=== PATIENT | female | born 1970 | race Two or more races ===

== ENCOUNTER → 2019-11-26 | Outpatient (CLI) | payer OTHER ==
[2019-11-26 09:35] LABS: Basophils # (auto) 0.1 uL; Eosinophils # (auto) 0.2 uL; Monocytes # (auto) 0.7 uL; Neutrophils # (auto) 3.7 uL; White Blood Cell 6.3 10^3/uL (4.4-10.8)
[2019-11-26 09:37] LABS: Basophils % (auto) 1.1 % (0.0-2.0); Eosinophils % (auto) 2.5 % (0.0-7.0); Hematocrit 31.2 % (36.0-46.0); Hemoglobin 9.9 g/dL (12.2-16.2); Lymphocytes # (auto) 1.7 uL; Lymphocytes % (auto) 27.4 % (10.0-50.0); Mean Corpuscular Hemoglobin 22.6 pg (28.0-32.0); Mean Corpuscular Hgb Conc. 31.7 g/dL (32.0-36.0); Mean Corpuscular Volume 71.3 fL (80.0-100.0); Monocytes % (auto) 10.7 % (0.0-12.0); Neutrophils % (auto) 58.3 % (37.0-80.0); Platelet Count (auto) 399 10^3/uL (140-450); Red Blood Cells 4.37 10^6/uL (4.0-5.20)
[2019-11-26 10:04] LABS: Follicle Stimulating Hormone 46.43 IU/L (SEE BELOW)
== END | disposition home or self-care (01) ==
LOC: LAB 08:53
PROVIDERS: ATTEND Obstetrics & Gynecology
DX: N93.9 Abnormal uterine and vaginal bleeding, unspecified (principal)
CPT/HCPCS: 36415; 82670; 83001; 83002; 84403; 84443; 85025

== ENCOUNTER 2022-09-12 19:45 | Inpatient (IN) | payer BC, OTHER ==
[~2022-09-12] VITALS: Ht 160 cm; Wt 66.0 kg
[2022-09-12] MEDS ORDERED: IOHEXOL 350 MG/ML 100ML IJ ONE (20:23)
[2022-09-12] MEDS ORDERED: ONDANSETRON HCL 4 MG/2 ML VIAL IV ONE (20:45)
[2022-09-12] MEDS ORDERED: MORPHINE SULFATE 4 MG/ML SYR/VIAL IV ONE (20:45)
[2022-09-12] MEDS ORDERED: LACTATED RINGER'S 1,000 ML IV ONE (20:45)
[2022-09-12 21:01] LABS: Basophils # (auto) 0 10 ^3/uL (0-0.2); Basophils % (auto) 0.4 % (0.0-2.0); Eosinophils # (auto) 0 10 ^3/uL (0-0.8); Hematocrit 41.6 % (36.0-46.0); Lymphocytes # (auto) 0.4 10 ^3/uL (0.4-5.4); Lymphocytes % (auto) 4.7 % (10.0-50.0); Mean Corpuscular Hemoglobin 27.9 pg (28.0-32.0); Mean Corpuscular Hgb Conc. 33.6 g/dL (32.0-36.0); Mean Corpuscular Volume 83.1 fL (80.0-100.0); Monocytes # (auto) 0.6 10 ^3/uL (0-1.3); Monocytes % (auto) 6.4 % (0.0-12.0); Neutrophils # (auto) 7.6 10 ^3/uL (1.6-8.6); Neutrophils % (auto) 88.5 % (37.0-80.0); Red Blood Cells 5.01 10^6/uL (4.0-5.20); White Blood Cell 8.5 10^3/uL (4.4-10.8)
[2022-09-12 21:06] LABS: INR 1.03 (0.9-1.15); Partial Thromboplastin Time 29.3 sec (24.6-33.4)
[2022-09-12 21:09] LABS: Albumin 4.2 g/dL (3.4-5.0); Calcium 9.2 mg/dL (8.5-10.1); Potassium 3.7 mmol/L (3.5-5.1)
[2022-09-12 21:13] LABS: BUN/Creatinine Ratio 14.3; Total Protein 7.9 g/dL (6.4-8.2)
[2022-09-12] MEDS ORDERED: HYDROcodone-ACET 10/325MG TAB PO ONE (23:00)
[2022-09-13 05:36] LABS: Urine Bacteria NONE SEEN /hpf (None Seen); Urine Blood Negative /uL (Negative); Urine Mucus FEW (None Seen); Urine WBC 1 /hpf (0 - 5)
[2022-09-13 05:37] LABS: Urine Specific Gravity > 1.050 (1.001-1.035)
[2022-09-13] MEDS ORDERED: ACETAMINOPHEN 500 MG TAB PO ONE (08:15)
[2022-09-13 11:35] VITALS: BP 131/78
[2022-09-13] MEDS ORDERED: HYDROcodone-ACET 5/325MG TAB PO PRN (12:15)
[2022-09-13] MEDS ORDERED: MORPHINE SULFATE INJ 2 MG/ml SYRG IV PRN (12:15)
[2022-09-13] MEDS ORDERED: ACETAMINOPHEN 325 MG TAB PO PRN (12:15)
[2022-09-13] MEDS ORDERED: ONDANSETRON HCL 4 MG/2 ML VIAL IV PRN (12:15)
[2022-09-13] MEDS ORDERED: NITROGLYCERIN 0.4 MG SL TAB SL PRN (12:15)
[2022-09-14] MEDS ORDERED: cefTRIAXone 1GM/50ML D5W 50 ML IV SCH (09:00)
== END 2022-09-13 12:57 | disposition left against medical advice (07) | DRG 552 ==
LOC: ER 19:52 → TELE 09-13 12:10
PROVIDERS: ADMIT Hospitalist; ATTEND Hospitalist
DX: M54.50 Low back pain, unspecified (principal); I77.4 Celiac artery compression syndrome; Z20.822 Contact with and (suspected) exposure to COVID-19; Z53.29 Procedure and treatment not carried out because of patient's decision for other reasons; E86.0 Dehydration; R73.9 Hyperglycemia, unspecified
CPT/HCPCS: 36415; 70450; 71260; 74177; 80053; 81001; 82962; 83735; 83880; 84484; 85025; 85610; 85730; 87426; 93005; 96361; 96374; 99291; G0378; J2405

== ENCOUNTER 2025-09-25 07:01 | Inpatient (IN) | payer BC ==
[2025-09-25] VITALS (14 sets, daily range): BP systolic 125–182; BP diastolic 79–120; PULSE 66–91; RESP 15–22; TEMP 97.7–98.4; O2SAT 95–100
[~2025-09-25] VITALS: Ht 160 cm; Wt 80.3 kg
--- NOTE | 2025-09-25 07:50 | ED.PDOC ---
HPI Comments 54 year old female presents to the ED with a chief complaint of chest pain onset last night around 19:00. Patient states she began experiencing LT sided, non- radiating chest pain, since last night around 19:00, currently rates pain 10/10. She describes pain as a pressure sensation, worsens with inhalation. She has been sick with flu-like symptoms since 09/12/25, including cough, congestion. Denies nausea, vomiting, diarrhea, dizziness, headache, fever, chills, blurred vision, numbness/tingling. No other symptoms or modifying factors present at this time. Chief Complaint: Chest Pain Time Seen by MD: 07:30 Reviewed Notes: Medications, Allergies Allergies: Coded Allergies: NO KNOWN ALLERGIES (Unverified , 09/25/25) Information Source: Patient, Spouse Mode of Arrival: Ambulatory Severity: Moderate Timing: Hours Duration: Since onset Prehospital treatment: None Location: Chest (L) Radiation: No Radiation Quality: Pressure Onset: At Rest Cardiac Risk Factors: None PE Risk Factors: None History of: None Modifying Factors: Nothing Past Medical History PAST MEDICAL HISTORY: Denies Surgical History: STONE HAND History: Denies all STONE HAND Hx Family History Family History: Reviewed,noncontributory to illness Social History Smoker: Non-Smoker Alcohol: Denies ETOH Use Drugs: Denies Drug Use Lives In: Home Constitutional: denies: chills, diaphoresis, fatigue, fever, malaise, sweats, weakness, others EENTM: denies: blurred vision, double vision, ear bleeding, ear discharge, ear drainage, ear pain, ear ringing, eye pain, eye redness, hearing loss, mouth pain, mouth swelling, nasal discharge, nose bleeding, nose congestion, nose pain, photophobia, tearing, throat pain, throat swelling, voice changes, others Respiratory: denies: cough, hemoptysis, orthopnea, SOB at rest, shortness of breath, SOB with excertion, stridor, wheezing, others Cardiovascular: reports: chest pain; denies: dizzy spells, diaphoresis, Dyspnea on exertion, edema, irregular heart beat, left arm pain, lightheadedness, palpitations, PND, syncope, others Gastrointestinal: denies: abdomen distended, abdominal pain, blood streaked bowels, constipated, diarrhea, dysphagia, difficulty swallowing, hematemesis, melena, nausea, poor appetite, poor fluid intake, rectal bleeding, rectal pain, vomiting, others Genitourinary: denies: abnormal vagina bleeding, burning, dyspareunia, dysuria, flank pain, frequency, hematuria, incontinence, pain, , vagina discharge, urgency, others Neurological: denies: dizziness, fainting, headache, left sided numbness, left sided weakness, numbness, paresthesia, pre-existing deficit, right sided numbness, right sided weakness, seizure, speech problems, tingling, tremors, weakness, others Musculoskeletal: denies: back pain, gout, joint pain, joint swelling, muscle pain, muscle stiffness, neck pain, others Integumetry: denies: bruises, change in color, change in hair/nails, dryness, laceration, lesions, lumps, rash, wounds, others Allergic/Immunocompromised: denies: Difficulty Healing, Frequent Infections, Hives, Itching, others Hematologic/Lymphatic: denies: anemia, blood clots, easy bleeding, easy bruising, swollen glands, others Endocrine: denies: excessive hunger, excessive sweating, excessive thirst, excessive urination, flushing, intolerance to cold, intolerance to heat, unexplained weight gain, unexplained weight loss, others Psychiatric: denies: anxiety, bipolar disorder, depression, hopeless, panic disorder, schizophrenia, sleepless, suicidal, others All Other Systems: Reviewed and Negative Physical Exam General Appearance: Normal, Other (appears uncomfortable) HEENT: Normal ENT Inspection, Pharynx Normal, TMs Normal Neck: Full Range of Motion, Non-Tender, Normal, Normal Inspection Respiratory: Chest Non-Tender, Lungs Clear, No Accessory Muscle Use, No Respiratory Distress, Normal Breath Sounds Cardiovascular: No Edema, No JVD, No Murmur, No Gallop, Normal Peripheral Pulses, Regular Rate/Rhythm Breast Exam: Deferred Gastrointestinal: No Organomegaly, Non Tender, No Pulsatile Mass, Normal Bowel Sounds, Soft Genitalia: Deferred Pelvic: Deferred Rectal: Deferred Extremities: No calf tenderness, Normal capillary refill, Normal inspection, Normal range of motion, Non-tender, No pedal edema Musculoskeletal : Apperance: Normal Neurologic: Alert, field marketing lead II-XII nml as Tested, No Motor Deficits, Normal Affect, Normal Mood, No Sensory Deficits Cerebellar Function: Normal Reflexes: Normal Skin: Dry, Normal Color, Warm Lymphatic: No Adenopathy Was a procedure done? Was a procedure done?: No CP Differential Dx Differential Diagnosis: MAT, [place] Differential Diagnosis: Chest Wall Pain, Pneumonia, Other X-Ray, Labs, Meds, VS Vital Signs Date Time Temp Pulse Resp B/P (MAP) Pulse Ox O2 Delivery O2 Flow Rate FiO2 09/25/25 08:16 60 09/25/25 07:38 97.8 82 16 175/113 96 97.8 09/25/25 07:29 68 Lab Test 09/25/25 08:32 09/25/25 07:48 Range/Units Troponin I High Sensitivity 5 7 </=34 ng/L White Blood Count 7.2 4.4-10.8 10^3/uL Red Blood Count 4.98 4.0-5.20 10^6/uL Hemoglobin 14.6 12.2-16.2 g/dL Hematocrit 43.4 36.0-46.0 % Mean Corpuscular Volume 87.1 80.0-100.0 fL Mean Corpuscular Hemoglobin 29.2 28.0-32.0 pg Mean Corpuscular Hemoglobin Concent 33.6 32.0-36.0 g/dL Red Cell Distribution Width 12.8 11.8-14.3 % Platelet Count 311 140-450 10^3/uL Mean Platelet Volume 7.7 6.9-10.8 fL Neutrophils (%) (Auto) 61.5 37.0-80.0 % Lymphocytes (%) (Auto) 27.9 10.0-50.0 % Monocytes (%) (Auto) 7.6 0.0-12.0 % Eosinophils (%) (Auto) 2.5 0.0-7.0 % Basophils (%) (Auto) 0.5 0.0-2.0 % Neutrophils # (Auto) 4.4 1.6-8.6 10 ^3/uL Lymphocytes # (Auto) 2.0 0.4-5.4 10 ^3/uL Monocytes # (Auto) 0.5 0-1.3 10 ^3/uL Eosinophils # (Auto) 0.2 0-0.8 10 ^3/uL Basophils # (Auto) 0 0-0.2 10 ^3/uL Nucleated Red Blood Cells 0.1 % Sodium Level 144 136-145 mmol/L Potassium Level 4.3 3.5-5.1 mmol/L Chloride Level 105 98-107 mmol/L Carbon Dioxide Level 29 20-31 mmol/L Anion Gap 10 5-15 Blood Urea Nitrogen 8 L 9-23 mg/dL Creatinine 0.73 0.550-1.02 mg/dL Glomerular Filtration Rate Calc 98 >90 mL/min BUN/Creatinine Ratio 11.0 10.0-20.0 Serum Glucose 99 74-106 mg/dL Calcium Level 10.1 8.7-10.4 mg/dL [place] [id number] Ph: [phone] DIAGNOSTIC IMAGING Diagnostic Imaging Report : [id number] Signed PATIENT: KALA MARTIN ACCT: [id number] UNIT: [id number] : 1970 LOC: ER ROOM / BED: / AGE / SEX: 54 / F ADM STATUS: REG ER SERVICE 5 ORDERING PHYSICIAN: KAMERON WALSH MD PROCEDURE(s): CXRP - CHEST PORTABLE REASON: cp ORDER NUMBER(s): [id number], ACCESSION NUMBER(s): [id number] CHEST RADIOGRAPH INDICATION: cp TECHNIQUE: Single frontal view of the chest was obtained COMPARISON: None FINDINGS: Lines and Tubes: None Lungs: Clear Pleura: No effusion. No pneumothorax. Cardiomediastinal contours: Unremarkable Bones: Unremarkable IMPRESSION: No acute disease. ATED BY: HIEU LOPEZ MD DICTATED DATE/TIME: 09/25/25822 SIGNED BY: HIEU LOPEZ MD SIGNED DATE/TIME: 09/25/25822 CC: Time of 1ST Reevaluation: 08:00 Reevaluation 1ST: Unchanged Patient Education/Counseling: Diagnosis, Treatment, Prognosis Family Education/Counseling: No Family Present SEPSIS Sepsis Screen Physician Orders Urinalysis (09/25/25 07:36) Chest Portable (09/25/25 07:36) Electrocardigram (09/25/25 07:36) Troponin-I Hs (09/25/25 10:36) Electrocardigram (09/25/25 08:36) Electrocardigram (09/25/25 10:36) Vital Signs Date Time Temp Pulse Resp B/P (MAP) Pulse Ox O2 Delivery O2 Flow Rate FiO2 09/25/25 08:16 60 09/25/25 07:38 97.8 82 16 175/113 96 97.8 09/25/25 07:29 68 Laboratory Tests Test 09/25/25 07:48 White Blood Count 7.2 10^3/uL (4.4-10.8) Departure 1 Departure Time of Disposition: 09:28 (Patient presented with chest pain that was concerning for possible STEMI, ACS, PE, Pneumonia, Muscle Strain, COPD, Dissection. Data: 1. I ordered and reviewed the result of at least 3 labs including a CBC, BMP, and Troponin. 2. I independently interpreted the following tests: EKG which shows sinus arrhythmia and Chest X-ray which shows benign chest.Risk:This patient has a high risk of morbidity due to further diagnostic testing or treatment and may suffer from an acute cardiac or respiratory disorder. Workup reveals concern for ACS and patient should be admitted for further workup and possible expert consultation. ) Impression: Primary Impression: Acute chest pain Additional Impression: Nausea Disposition: 09 ADMITTED INPATIENT Admit to: Tele Condition: Guarded Critical Care Note Critical Care Time?: No Stability Stability form required: No Heart Score Heart Score: Heart Score Response (Comments) Value History N/A 0 EKG N/A 0 Age N/A 0 Risk Factors N/A 0 Troponin N/A 0 Total 0 I personally scribed for KAMERON WALSH MD ([email or web address]) on 09/25/25 at 07:49. Electronically submitted by Anca Perkins ([email or web address]). I personally scribed for KAMERON WALSH MD ([email or web address]) on 09/25/25 at 08:11. Electronically submitted by Anca Perkins ([email or web address]). I personally scribed for KAMERON WALSH MD ([email or web address]) on 09/25/25 at 08:30. Electronically submitted by Anca Perkins ([email or web address]). KAMERON WALSH MD Sep 25, 2025 07:49
[2025-09-25 07:57] LABS: Hematocrit 43.4 % (36.0-46.0); Hemoglobin 14.6 g/dL (12.2-16.2); Mean Corpuscular Hemoglobin 29.2 pg (28.0-32.0); Mean Corpuscular Volume 87.1 fL (80.0-100.0); Nucleated Red Blood Cells % 0.1 %
[2025-09-25 08:07] LABS: Chloride 105 mmol/L (98-107); Potassium 4.3 mmol/L (3.5-5.1); Sodium 144 mmol/L (136-145)
[2025-09-25 08:08] LABS: Anion Gap 10 (5-15); Carbon Dioxide 29 mmol/L (20-31)
[2025-09-25 08:09] LABS: Calcium 10.1 mg/dL (8.7-10.4)
[2025-09-25 08:14] LABS: BUN/Creatinine Ratio 11.0 (10.0-20.0); Blood Urea Nitrogen 8 mg/dL (9-23); Glucose 99 mg/dL (74-106)
[2025-09-25] MEDS: ONDANSETRON HCL 4 MG/2 ML VIAL IV ONE (08:15)
--- NOTE | 2025-09-25 08:25 | DVH ---
CHEST RADIOGRAPH INDICATION: cp TECHNIQUE: Single frontal view of the chest was obtained COMPARISON: None FINDINGS: Lines and Tubes: None Lungs: Clear Pleura: No effusion. No pneumothorax. Cardiomediastinal contours: Unremarkable Bones: Unremarkable IMPRESSION: No acute disease.
[2025-09-25] MEDS: MORPHINE SULFATE 4 MG/ML SYR/VIAL IV ONE (09:46)
[2025-09-25] MEDS: FAMOTIDINE (10MG/ML) 2ML VL IV ONE (10:17)
[2025-09-25] MEDS: SODIUM CHLORIDE 0.9% 1,000 ML IV ONE (10:17)
[2025-09-25] MEDS: MAALOX PLUS or MAALOX 30 ML PO ONE (10:17)
[2025-09-25] MEDS ORDERED: ONDANSETRON HCL 4 MG/2 ML VIAL IV PRN (10:45)
[2025-09-25] MEDS ORDERED: NITROGLYCERIN 0.4 MG SL TAB SL PRN ×3 (10:45→16:30)
--- NOTE | 2025-09-25 10:52 | DVHHP2 ---
History of Present Illness Reason for Visit: chest pain History of Present Illness 54-year-old female with no significant past medical history and no prior surgical history presents with chest pain and headache. The patient reports that her chest pain began around 7:00 PM last night, localized to the left chest wall, described as a pressure sensation like someone sitting on her chest. She denies any prior history of myocardial infarction. She endorses shortness of breath and reports difficulty catching her breath associated with the pain. She denies caffeine intake the night prior. She also reports a cough with clear sputum, but denies fever, chills, or hemoptysis. Additionally, the patient complains of a severe headache for the past two weeks, described as a pressure- type headache. She denies dizziness, visual changes, focal weakness, numbness, or speech changes. She reports that she has felt congested since September 12, 2025, and has been taking [id number] medications without improvement. She denies chest trauma, palpitations, syncope, nausea, vomiting, or leg swelling. w ill admit to tele cards consult pending echo results Past Medical History See HPI above Past Surgical History See HPI above Family History Reviewed, non-contributory to the management of this case. Past Social History The patient lives at home, denies smoking, alcohol or illicit drugs abuse. Review of Systems Constitutional: No: Fever, Chills, Sweats, Weakness, Malaise, Other Eyes: No: Pain, Vision change, Conjunctivae inflammation, Eyelid inflammation, Other, Redness ENT: No: Ear pain, Ear discharge, Nose pain, Nose discharge, Nose congestion, Mouth pain, Mouth swelling, Throat pain, Throat swelling, Other Respiratory: Cough, Shortness of breath, SOB with excertion; No: Dry, Wheezing, Hemoptysis, Pleuritic Pain, Sputum, Wheezing, Other Cardiovascular: Chest Pain; No: Palpitations, Orthopnea, Paroxysmal Noc. Dyspnea, Edema, Lt Headedness, Other Gastrointestinal: No: Nausea, Vomiting, Abdominal Pain, Diarrhea, Constipation, Melena, Hematochezia, Other Genitourinary: No Dysuria, No Frequency, No Incontinence, No Hematuria, No Retention, No Other Musculoskeletal: No: other, neck pain, shoulder pain, arm pain, back pain, hand pain, leg pain, foot pain Skin: No: Rash, Lesions, Jaundice, Bruising, Other Neurological: No: Weakness, Numbness, Incoordination, Change in speech, Confusion, Seizures, Other Allergies: Coded Allergies: NO KNOWN ALLERGIES (Unverified , 09/25/25) Exam Vital Signs Vital Signs Date Time Temp Pulse Resp B/P (MAP) Pulse Ox O2 Delivery O2 Flow Rate FiO2 09/25/25 09:40 72 16 98 Room Air* 0 21 09/25/25 09:40 98.1 155/100 (118) 98.1 General Appearance: Alert, Oriented X3, Cooperative, mild distress HEENT: Atraumatic, PERRLA, EOMI, Mucous membr. moist/pink Respiratory: Other (Diminished throughout) Cardiovascular: Regular rate, Normal S1, Normal S2, No murmurs Abdominal: Normal bowel sounds, Soft, No tenderness, No hepatospenomegaly, No masses Extremities: No clubbing, No cyanosis, No edema, Normal pulses, No ten derness/swelling Skin: No rashes, No breakdown, No significant lesion Neuro: Normal gait, Normal speech, Strength at 5/5 X4 ext, Normal tone, Sensation intact, Cranial nerves 3-12 NL Psych/Mental Status: Mental status NL, Mood NL Labs/Xrays I reviewed labs, imaging CT scan abdomen pelvis, EKG and all diagnostic studies on this patient from ED records and the medical chart Labs Test 09/25/25 10:30 09/25/25 09:46 09/25/25 07:48 Range/Units POC Glucose 93 70-106 mg/dl White Blood Count 7.2 4.4-10.8 10^3/uL Red Blood Count 4.98 4.0-5.20 10^6/uL Hemoglobin 14.6 12.2-16.2 g/dL Hematocrit 43.4 36.0-46.0 % Mean Corpuscular Volume 87.1 80.0-100.0 fL Mean Corpuscular Hemoglobin 29.2 28.0-32.0 pg Mean Corpuscular Hemoglobin Concent 33.6 32.0-36.0 g/dL Red Cell Distribution Width 12.8 11.8-14.3 % Platelet Count 311 140-450 10^3/uL Mean Platelet Volume 7.7 6.9-10.8 fL Neutrophils (%) (Auto) 61.5 37.0-80.0 % Lymphocytes (%) (Auto) 27.9 10.0-50.0 % Monocytes (%) (Auto) 7.6 0.0-12.0 % Eosinophils (%) (Auto) 2.5 0.0-7.0 % Basophils (%) (Auto) 0.5 0.0-2.0 % Neutrophils # (Auto) 4.4 1.6-8.6 10 ^3/uL Lymphocytes # (Auto) 2.0 0.4-5.4 10 ^3/uL Monocytes # (Auto) 0.5 0-1.3 10 ^3/uL Eosinophils # (Auto) 0.2 0-0.8 10 ^3/uL Basophils # (Auto) 0 0-0.2 10 ^3/uL Nucleated Red Blood Cells 0.1 % Sodium Level 144 136-145 mmol/L Potassium Level 4.3 3.5-5.1 mmol/L Chloride Level 105 98-107 mmol/L Carbon Dioxide Level 29 20-31 mmol/L Anion Gap 10 5-15 Blood Urea Nitrogen 8 L 9-23 mg/dL Creatinine 0.73 0.550-1.02 mg/dL Glomerular Filtration Rate Calc 98 >90 mL/min BUN/Creatinine Ratio 11.0 10.0-20.0 Serum Glucose 99 74-106 mg/dL Calcium Level 10.1 8.7-10.4 mg/dL SEPSIS Sepsis Screen Date sepsis recognized/suspect: Sep 25, 2025 Time Sepsis recognized/suspect: 939 Recent Procedure: No On Antibiotic Therapy: No Respiratory Rate >20: No Heart Rate >90: No Temp<36 C (96.8 F) or >38.3 C: No SBP <90 or MAP <65 mmHG: No New Acute Mental Status Change: No Is the patient on CPAP, BIPAP,: No Physician Orders Urinalysis (09/25/25 07:36) Chest Portable (09/25/25 07:36) Electrocardigram (09/25/25 07:36) Troponin-I Hs (09/25/25 10:36) Electrocardigram (09/25/25 08:36) Sodium Chloride 0.9% (09/25/25 10:00) Rapid Influenza A&B (09/25/25 10:27) Covid19 Antigen Radha (09/25/25 ) D-Dimer (09/25/25 10:27) Albuterol Medneb (Ventolin Medneb) (09/25/25 10:45) Albuterol Medneb (Ventolin Medneb) (09/25/25 10:45) Ipratropium Medneb (Atrovent Medneb) (09/25/25 10:45) Ipratropium Medneb (Atrovent Medneb) (09/25/25 10:45) Cont Med Neb Intial Tx (09/25/25 10:44) Head Without Contrast (09/25/25 10:44) Test, Urine (09/25/25 10:44) Admit (09/25/25 10:44) Code Status (09/25/25 10:44) Vital Signs .PER UNIT PROTOCOL (09/25/25 10:44) Tissue Technologist (09/25/25 10:44) May Elevate Hob ____ Degrees (09/25/25 10:44) Cardiac Diet-2gna,Lofat,Lochol (09/25/25 Lunch) Aspirin Chewable Tablet (09/26/25 10:00) Morphine Sulfate Injection (09/25/25 10:45) Acetaminophen Tablet (Tylenol Tablet) (09/25/25 10:45) Zolpidem Tartrate (Ambien) (09/25/25 10:45) Docusate Sodium Capsule (Colace Capsule) (09/26/25 10:00) Pulse Oximeter Check (09/25/25 10:44) Complete Blood Count (09/26/25 04:00) Comprehensive Metabolic Panel (09/26/25 04:00) Prothrombin Time W/ Inr (09/25/25 10:44) Echo 2d Mode Cardiac Dop (09/25/25 10:44) Nitroglycerin Sublingual (Ntrostat Subli (09/25/25 10:45) Ondansetron Hcl (Zofran) (09/25/25 10:45) Magnesium (09/25/25 10:44) Lipase (09/25/25 10:44) Electrocardigram (09/25/25 10:44) Lipitor 40mg Once Hi-Intensity (09/25/25 10:45) Vital Signs Date Time Temp Pulse Resp B/P (MAP) Pulse Ox O2 Delivery O2 Flow Rate FiO2 09/25/25 09:40 72 16 98 Room Air* 0 21 09/25/25 09:40 98.1 72 16 155/100 (118) 98 98.1 09/25/25 08:16 60 09/25/25 07:38 97.8 82 16 175/113 96 97.8 09/25/25 07:29 68 Laboratory Tests Test 09/25/25 07:48 White Blood Count 7.2 10^3/uL (4.4-10.8) Medications Medications Dose Ordered Sig/Rosamaria Route Start Time Stop Time Status Last Admin Dose Admin Al Hydrox/Mg Hydrox/Simethicone 15 ml ONCE ONCE PO 09/25/25 08:15 09/25/25 08:20 DC 09/25/25 10:17 15 ML Famotidine 20 mg ONCE ONCE IV 09/25/25 08:15 09/25/25 08:20 DC 09/25/25 10:17 20 MG Sodium Chloride 1,000 ml @ 1,000 mls/hr Q1H ONCE IV 09/25/25 10:00 09/25/25 10:59 09/25/25 10:17 1,000 MLS/HR Assessment/Plan Assessment/Plan 54-year-old female admitted for acute chest pain and shortness of breath, with associated cough and prolonged headache, requiring cardiac rule-out and further diagnostic evaluation. Acute chest pain Left-sided chest pressure, non-exertional/Likely muscul oskeletal chest pain vs bronchitis-related pain Troponin x3 negative EKG without acute ischemic changes Chest X-ray negative ordered echo fu results If abnormal testing or worsening symptoms, cardiology consult to be considered Continue telemetry monitoring ordered asa and atorvastin for now ordered ddimer acute Shortness of breath with cough/Suspect viral bronchitis Cough productive of clear sputum Chest X-ray negative COVID and influenza pending Suspect viral bronchitis no antibiotics indicated at this time ordered solumedrol ordered albuterol/atrovent prn sob acute Headache, subacute Pressure-type headache for 2 weeks No focal neurologic deficits CT head pending Symptomatic management with analgesics Upper respiratory congestion Likely viral etiology Ongoing since September 12, 2025 cont steriods and albuterol.atrovent prn Continue supportive care FEN / PPx Fluids: ivf Electrolytes: Monitor BMP Nutrition: Regular diet DVT Prophylaxis: SCDs GI Prophylaxis protonix while on steriods Disposition Admit to telemetry for continued cardiac monitoring, completion of diagnostic workup including CT head and viral testing, and symptom management. Plan discussed with: Patient My Orders Orders - ANNE LINTON DNP Procedure Category Date Status Time Rapid Influenza A&B LAB 09/25/25 Logged 10:27 Covid19 Antigen Radha LAB 09/25/25 Logged D-Dimer LAB 09/25/25 In Process 10:27 Albuterol Medneb PHA 09/25/25 Verified (Ventolin Medneb) 10:45 Albuterol Medneb PHA 09/25/25 Verified (Ventolin Medneb) 10:45 Ipratropium Medneb PHA 09/25/25 Verified (Atrovent Medneb) 10:45 Ipratropium Medneb PHA 09/25/25 Verified (Atrovent Medneb) 10:45 Cont Med Neb Intial Tx RT 09/25/25 Verified 10:[address] 09/25/25 Verified 10:44 Test, Urine LAB 09/25/25 Verified 10:44 Admit ADMIT 09/25/25 Verified 10:44 Code Status CODE 09/25/25 Verified 10:44 Vital Signs GERMÁN 09/25/25 Verified 10:44 Tissue Technologist GERMÁN 09/25/25 Verified 10:44 May Elevate Hob ____ GERMÁN 09/25/25 Verified Degrees 10:44 Cardiac DIET 09/25/25 Verified Diet-2gna,Lofat,Lochol Lunch Aspirin Chewable PHA 09/26/25 Verified Tablet 10:00 Morphine Sulfate PHA 09/25/25 Verified Injection 10:45 Acetaminophen Tablet PHA 09/25/25 Verified (Tylenol Tablet) 10:45 Zolpidem Tartrate PHA 09/25/25 Verified (Ambien) 10:45 Docusate Sodium PHA 09/26/25 Verified Capsule (Colace 10:00 Pulse Oximeter Check RT 09/25/25 Verified 10:44 Complete Blood Count LAB 09/26/25 Verified 04:00 Comprehensive LAB 09/26/25 Verified Metabolic Panel 04:00 Prothrombin Time W/ LAB 09/25/25 Verified INR 10:44 Echo 2d Mode Cardiac US 09/25/25 Verified DOP 10:44 Nitroglycerin PHA 09/25/25 Verified Sublingual (Ntrostat 10:45 Ondansetron Hcl PHA 09/25/25 Verified (Zofran) 10:45 Magnesium LAB 09/25/25 Verified 10:44 Lipase LAB 09/25/25 Verified 10:44 Electrocardigram EKG 09/25/25 Verified 10:44 Lipitor 40mg Once PHA 09/25/25 Verified Hi-Intensity 10:45 Date of Service: Sep 25, 2025 Billing Provider: ANNE LINTON DNP Common Visit Codes: [id number] INP/OBS CARE (HIGH) ANNE LINTON DNP Sep 25, 2025 10:52
[2025-09-25] MEDS: IPRATROPIUM BROM 0.5 MG/2.5ML INH SOL NEB ONE ×2 (11:04→11:05)
[2025-09-25] MEDS: ALBUTEROL SULF 2.5 MG/0.5ML(0.5%) NEB SOLN NEB ONE ×2 (11:05)
[2025-09-25] MEDS: ATORVASTATIN 20 MG TAB PO ONE (11:14)
[2025-09-25] MEDS: methylPREDNISolone SOD SUCC 125 MG/2 ML VL IV ONE (11:14)
[2025-09-25] MEDS: HYDROcodone-ACET 5/325MG TAB PO ONE (11:15)
[2025-09-25 11:21] LABS: Magnesium 2.3 mg/dL (1.6-2.6)
[2025-09-25 11:42] LABS: Lipase 51.0 U/L (12-53)
[2025-09-25 11:44] LABS: INR 1.0 (0.9-1.15); Prothrombin Time 10.6 sec (9.3-11.8)
--- NOTE | 2025-09-25 12:11 | DVH ---
CT HEAD WITHOUT CONTRAST HISTORY: Headache. Evaluate for acute intracranial hemorrhage. COMPARISON: HEAD WITHOUT CONTRAST on DOS: 09/13/22. CONTRAST: Study was performed without contrast. TECHNIQUE: Axial images from the skull base to the vertex with coronal and sagittal reformatted images. This exam was performed according to our departmental dose optimization program. Up-to-date CT equipment and radiation dose reduction techniques are utilized as appropriate. DOSE: CTDIvol: 57 mGy; DLP: 1008.5 mGy-cm. FINDINGS: BRAIN PARENCHYMA: No acute hemorrhage, large vascular territory infarct, or mass effect. White matter is within normal limits for age. VENTRICLES/EXTRA-AXIAL SPACES: No evidence of hydocephalus. No extra-axial collection. Basal cisterns are patent. EXTRACRANIAL STRUCTURES: No acute or suspicious ossues abnormality. Normal soft tissues. Partially images portions of the paranasal sinuses and mastoids demonstrate no significant abnormality. Orbits are unremarkable. IMPRESSION: No acute intracranial abnormality.
[2025-09-25 13:13] LABS: COVID19 ANTIGEN SOFIA FIA NEGATIVE (NEGATIVE)
[2025-09-25] MEDS: methylPREDNISolone SOD SUCC 40 MG/ML VL IV SCH (13:40)
[2025-09-25] MEDS: PANTOPRAZOLE 40 MG/10 ML VIAL INJ IV ONE (13:40)
[2025-09-25] MEDS: ACETAMINOPHEN 325 MG TAB PO PRN (14:41)
--- NOTE | 2025-09-25 15:49 | ECG ---
[facility] Test Date: 2025-09-25 Test Time: 15:48:15 Pat Name: KALA MARTIN Department: Room: [facility]5T B Gender: F Insecticide Supervisor: KIERA : 1970 Requested By: KAMERON WALSH Order Number: [id number] Reading MD: Mark Garcia Measurements Intervals [place] Rate: 70 P: 50 MT: 145 QRS: 60 QRSD: 93 T: 212 QT: 421 QTc: 455 Interpretive Statements Sinus rhythm Abnrm T, consider ischemia, anterolateral lds Electronically Signed On 09-25-2025 17:30:24 PST by Mark Garcia Please click the below link to view image of tracing.
[2025-09-25] MEDS: MORPHINE SULFATE 4 MG/ML SYR/VIAL IV PRN (16:06)
[2025-09-25] MEDS ORDERED: MORPHINE SULFATE INJ 2 MG/ml SYRG IV ONE (16:30)
[2025-09-25] MEDS: ALBUTEROL SULF 2.5 MG/0.5ML(0.5%) NEB SOLN NEB PRN (16:40)
[2025-09-25] MEDS: IPRATROPIUM BROM 0.5 MG/2.5ML INH SOL NEB PRN (16:40)
[2025-09-25] MEDS ORDERED: IOHEXOL 350 MG/ML 100ML IJ ONE (16:42)
--- NOTE | 2025-09-25 18:06 | DVH ---
INDICATION: AAA; ACUTE ABD AND CHEST PAIN TECHNIQUE: CT axial images of the chest, abdomen and pelvis are obtained with contrast. Coronal and sagittal reformats were obtained. Radiation Dose Information: CTDI volume is 6.69 mGy. Dose-length product is 487.76 mGy*cm COMPARISON: CT CHEST/AB/PL W CON- IV ONLY on DOS: 09/12/22 FINDINGS: The trachea is patent. No pneumothorax. Bilateral atelectasis. 10 mm right upper lobe ground-glass nodule/ opacity. Heart normal in size. No mediastinal/hilar lymphadenopathy. No supraclavicular, axillary lymphadenopathy. Ascending aorta measures 3.2 cm in diameter. Descending thoracic aorta measures 2.2 cm in diameter. Adrenal glands, spleen, pancreas unremarkable. Hepatic steatosis. No CT evidence for cholelithiasis. 6 mm left hepatic lobe hypodensity, too small to characterize, statistically likely a cyst. 11 mm posterior right hepatic lobe hypervascular lesion. No hydronephrosis. Small hiatal hernia. Stomach is partially distended. Small bowel loops are normal in caliber. Colonic diverticular disease. Moderate volume stool in the colon. No secondary signs for appendicitis. The abdominal aorta is normal in caliber with scattered atherosclerotic calcifications. No evidence for abdominal aortic aneurysmal Dilatation. The infrarenal abdominal aorta measures 1.5 cm in diameter. Bladder partially distended. Numerous periuterine varices. Enlargement of the left gonadal vein. No free pelvic fluid. No inguinal lymphadenopathy. There is vxfb-uw-ulwmtpuc bilateral sacroiliac degenerative joint disease. No aggressive osseous process. Tqne-yh-jymdxxbc thoracolumbar degenerative disc disease. IMPRESSION: No evidence for abdominal aortic aneurysm. 10 mm right upper lobe ground-glass pulmonary nodule. Recommend follow-up per Fleischner society criteria. Colonic diverticular disease. 11 mm posterior right hepatic lobe hypervascular lesion, possibly hemangioma. Recommend multiphasic MRI abdomen with and without contrast which can be done in the nonemergent setting. Periuterine varices with enlargement of the left gonadal vein which can be seen with pelvic congestion syndrome. Correlate with clinical symptoms. Other findings as described.
[2025-09-25] MEDS: LABETALOL HCL 20 MG/4 ML VL IV ONE (18:46)
--- NOTE | 2025-09-25 18:56 | ECG ---
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
[2025-09-25] MEDS: guaiFENesin-DM 100/10mg/5ml SYR PO PRN (20:15)
[2025-09-26] VITALS (15 sets, daily range): BP systolic 125–148; BP diastolic 77–89; PULSE 58–108; RESP 15–18; TEMP 96.6–98.4; O2SAT 93–99
[2025-09-26 06:57] LABS: Hematocrit 38.9 % (36.0-46.0); Hemoglobin 12.9 g/dL (12.2-16.2); Mean Corpuscular Hemoglobin 29.1 pg (28.0-32.0); Mean Corpuscular Volume 87.4 fL (80.0-100.0); Nucleated Red Blood Cells % 0.1 %
[2025-09-26 07:16] LABS: Alanine Aminotransferase 10 U/L (7-40); Albumin 4.2 g/dL (3.2-4.8); Alkaline Phosphatase 58 U/L (46-116); Anion Gap 14 (5-15); BUN/Creatinine Ratio 12.7 (10.0-20.0); Calcium 9.3 mg/dL (8.7-10.4); Carbon Dioxide 22 mmol/L (20-31); Chloride 106 mmol/L (98-107); Potassium 4.0 mmol/L (3.5-5.1); Sodium 142 mmol/L (136-145); Total Protein 6.9 g/dL (5.7-8.2)
[2025-09-26 07:17] LABS: Bilirubin, Total 0.5 mg/dL (0.2-1.0)
[2025-09-26 07:19] LABS: Blood Urea Nitrogen 8 mg/dL (9-23); Glucose 110 mg/dL (74-106)
[2025-09-26 08:30] LABS: Triglycerides 99 mg/dL (< 150)
[2025-09-26 08:32] LABS: Cholesterol 172 mg/dL (< 200); HDL Cholesterol 49 mg/dL (40-59)
--- NOTE | 2025-09-26 09:26 | DVHINCON2 ---
Date Seen: Sep 26, 2025 Referring Physician BLANCA Perez Reason for Consultation Chest pain History of Present Illness This is a 54-year-old female patient who presents to the emergency room with chief complaint of headache and chest pain. The patient reports that she has been feeling ill for the last two weeks. She reports that initially she was having flu-like symptoms which included cough, congestion, and phlegm production. On 09/24/2025, the patient reports that she began having chest pain at approximately 7:00 p.m. while lying down. She describes the pain as unprovoked, constant, stabbing in nature, left-sided and nonradiating. Associated symptoms include headache and shortness of breath. She came to the emergency room for further evaluation. Initial twelve lead electrocardiogram re veals normal sinus rhythm with nonspecific T-wave inversion in anterolateral leads. Serial troponin levels have been negative. Significant past medical history includes hypertension. The patient reports she was told in the past by her primary doctor that she had elevated blood pressure, but she made dietary and lifestyle changes and never was initiated on antihypertensive medications. She denies any previous cardiac workup. Past Medical History Past medical history reviewed. No other significant than mentioned above. Past Surgical History Family History: FH: cancer G8 FATHER Family History Family history reviewed. Social History Denies the use of tobacco, alcohol or illicit drugs. Allergies: Coded Allergies: NO KNOWN ALLERGIES (Unverified , 09/25/25) Home Meds Denies taking any prescribed or abag-ppn-trjknxv medications Current Medications Current Medications Medications (Trade) Dose Ordered Sig/Rosamaria Route PRN Reason Start Time Stop Time Status Last Admin Albuterol (Ventolin Medneb) 2.5 mg Q4HPRN PRN NEB SHORTNESS OF BREATH 09/25/25 10:45 09/26/25 06:04 Ipratropium [place] (Atrovent Medneb) 0.5 mg Q4HPRN PRN NEB SHORTNESS OF BREATH 09/25/25 10:45 09/26/25 06:04 Aspirin 81 mg DAILY PO 09/26/25 10:00 Morphine Sulfate 2 mg Q30MP PRN IV FOR CHEST PAIN 09/25/25 10:45 09/25/25 16:06 Acetaminophen (Tylenol Tablet) 325 mg Q4HP PRN PO FOR HEADACHE 09/25/25 10:45 09/25/25 21:47 Zolpidem Tartrate (Ambien) 5 mg QHSP PRN PO FOR INSOMNIA 09/25/25 10:45 Docusate Sodium (Colace Capsule) 100 mg DAILY PO 09/26/25 10:00 Nitroglycerin (Ntrostat Sublingual) 0.4 mg Q5MINP PRN SL FOR CHEST PAIN 09/25/25 10:45 09/25/25 20:04 DC Ondansetron HCl (Zofran) 4 mg Q4HP PRN IV NAUSEA / VOMITING 09/25/25 10:45 Nitroglycerin (Ntrostat Sublingual) 0.4 mg Q5MINP PRN SL FOR CHEST PAIN 09/25/25 10:45 09/25/25 12:12 DC Methylprednisolone Sodium Succinate (Solu Medrol) 40 mg Q8HR IV 09/25/25 14:00 09/26/25 05:39 Pantoprazole Sodium (Protonix) 40 mg DAILY IV 09/26/25 10:00 Nitroglycerin (Ntrostat Sublingual) 0.4 mg Q5MINP PRN SL FOR CHEST PAIN 09/25/25 16:30 Guaifenesin/ Dextromethorphan (Robitussin-Dm Liquid) 10 ml Q4HP PRN PO FOR COUGH 09/25/25 20:00 09/25/25 20:15 Review of Systems Constitutional: No symptom reported Ears, Nose, & Throat: No symptom reported Eyes: No symptom reported Neurological: No symptoms reported Pulmonary/Respiratory: Cough, congestion, phlegm production Cardiovascular: Chest pain Gastrointestinal: No symptom reported Genitourinary: No symptom reported Musculoskeletal: No symptom reported Skin: No symptom reported Psychiatric: No symptom reported Endocrine: No symptom reported Hematologic/Lymphatic: No symptom reported Vital Signs Vital Signs Date Time Temp Pulse Resp B/P (MAP) Pulse Ox O2 Delivery O2 Flow Rate FiO2 09/26/25 06:10 60 18 99 09/26/25 06:04 Room Air 0.0 09/26/25 06:04 21 09/26/25 05:00 96.6 128/79 (95) 96.6 Physical Exam General Appearance: Cooperative. Well-developed. Well-nourished. No acute dis tress. Pulmonary/Respiratory: Clear, bilateral breaths sounds. Cardiovascular/Chest: Regular rate and rhythm. Peripheral Pulses: 2+ Radial (R). 2+ Radial (L). 2+ Pedal (R). 2+ Pedal (L) Abdominal Exam: Normal bowel sounds. Ankle Exam: Negative ankle edema Lower extremities: Negative lower extremity edema Neuro/Mental Status: A/OX4, coherent. Thoughts/Psych: Normal thought pattern. Appropriate mood and affect. Good judgment and insight. Appearance: No acute distress. Skin Exam: Normal inspection. Normal color. Warm and dry. Labs/Diagnostic Data Labs Test 09/26/25 05:50 09/25/25 23:18 09/25/25 11:38 09/25/25 11:08 Range/Units White Blood Count 10.2 # 4.4-10.8 10^3/uL Red Blood Count 4.45 4.0-5.20 10^6/uL Hemoglobin 12.9 12.2-16.2 g/dL Hematocrit 38.9 # 36.0-46.0 % Mean Corpuscular Volume 87.4 80.0-100.0 fL Mean Corpuscular Hemoglobin 29.1 28.0-32.0 pg Mean Corpuscular Hemoglobin Concent 33.3 32.0-36.0 g/dL Red Cell Distribution Width 13.1 11.8-14.3 % Platelet Count 280 140-450 10^3/uL Mean Platelet Volume 8.0 6.9-10.8 fL Neutrophils (%) (Auto) 84.6 H 37.0-80.0 % Lymphocytes (%) (Auto) 12.2 10.0-50.0 % Monocytes (%) (Auto) 3.0 0.0-12.0 % Eosinophils (%) (Auto) 0.0 0.0-7.0 % Basophils (%) (Auto) 0.2 0.0-2.0 % Neutrophils # (Auto) 8.6 1.6-8.6 10 ^3/uL Lymphocytes # (Auto) 1.2 0.4-5.4 10 ^3/uL Monocytes # (Auto) 0.3 0-1.3 10 ^3/uL Eosinophils # (Auto) 0 0-0.8 10 ^3/uL Basophils # (Auto) 0 0-0.2 10 ^3/uL Nucleated Red Blood Cells 0.1 % Sodium Level 142 136-145 mmol/L Potassium Level 4.0 3.5-5.1 mmol/L Chloride Level 106 98-107 mmol/L Carbon Dioxide Level 22 20-31 mmol/L Anion Gap 14 5-15 Blood Urea Nitrogen 8 L 9-23 mg/dL Creatinine 0.63 0.550-1.02 mg/dL Glomerular Filtration Rate Calc 106 >90 mL/min BUN/Creatinine Ratio 12.7 10.0-20.0 Serum Glucose 110 H 74-106 mg/dL Hemoglobin A1c 5.3 <5.7 % A1C Calcium Level 9.3 8.7-10.4 mg/dL Total Bilirubin 0.5 0.2-1.0 mg/dL Aspartate Amino Transferase (AST) 11 L 13-40 U/L Alanine Aminotransferase (ALT) 10 7-40 U/L Alkaline Phosphatase 58 46-116 U/L Total Protein 6.9 5.7-8.2 g/dL Albumin 4.2 3.2-4.8 g/dL Triglycerides Level 99 < 150 mg/dL Cholesterol Level 172 < 200 mg/dL LDL Cholesterol 121 H < 100 mg/dL HDL Cholesterol 49 40-59 mg/dL Thyroid Stimulating Hormone (TSH) 0.36 L 0.55-4.78 uIU/mL Troponin I High Sensitivity 7 </=34 ng/L Influenza Type A Antigen Negative Negative Influenza Type B Antigen Negative Negative SARS-CoV-2 Antigen (Rapid) Negative NEGATIVE Prothrombin Time 10.6 9.3-11.8 sec Prothrombin Time INR 1.00 0.9-1.15 Test 09/25/25 10:30 09/25/25 09:46 09/25/25 07:48 Range/Units Magnesium Level 2.3 1.6-2.6 mg/dL Lipase 51 12-53 U/L POC Glucose 93 70-106 mg/dl D-Dimer, Quantitative 0.32 0.0-0.49 mg/L FEU Assessment Chest pain, rule out coronary ischemia Hypertensive urgency Hyperlipidemia, newly diagnosed 10mm right upper lobe nodule Plan/Recommendation We will continue with the following plan/recommendations (Dr. Castro): * Transthoracic echocardiogram was an EF of 65% with normal LV wall motion * Chest pain protocol * HEART score: 4 points * Single antiplatelet therapy and lipid-lowering agent * Blood pressure control * Close telemetry monitoring * Tentative Nuclear stress test pending chest CT This case was reviewed and discussed with . Given abnormal twelve lead electrocardiogram, the patient was offered a nuclear stress test. The patient understands and is agreeable to undergo stress test. The patient is still having respiratory symptoms such as cough, phlegm production, and congestion. We will schedule the patient to undergo a nuclear stress test on 09/29/[address] results and relief of patients' respiratory symptoms. Thank you for allowing us to care for this patient. Please call with any questions or concerns. Critical care time spent: 44 minutes This medical document was created using an electronic medical record system with voice recognition software and computerized dictation system. Although this document has been carefully reviewed, there might still be some phonetic and typographical errors. Occasional wrong-word or ``sound-alike substitutions may have occurred due to the inherent limitations of voice recognition software. These areas are purely typographical due to imperfections of the software programs and do not reflect any compromise in the patient's medical care. Please read the chart carefully and recognize, using context, where these substitutions have occurred. Plan discussed with: Patient NYHA Physical activity limitations: NA Date of Service: Sep 26, 2025 Billing Provider: ROHIT FLORES Cardiology Common Codes: 37635-VWCUNAS INP/OBS CARE (High) Cardiology Consultation Codes: 76049-[id number] CONSULT <45MIN ROHIT FLORES Sep 26, 2025 09:26
[2025-09-26] MEDS: DOCUSATE SOD 100 MG CAP PO SCH (10:00)
[2025-09-26] MEDS: PANTOPRAZOLE 40 MG/10 ML VIAL INJ IV SCH (10:00)
[2025-09-26 10:39] LABS: Free T3 2.44 pg/mL (2.3-4.2); Free T4 (Free Thyroxine) 1.12 ng/dL (0.89-1.76)
--- NOTE | 2025-09-26 10:58 | ECG ---
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
--- NOTE | 2025-09-26 12:33 | DVHSR ---
APPROVED REPORT EXAM: Two-dimensional and M-mode echocardiogram with Doppler and color Doppler. Blood Pressure: 128/79 mmHg INDICATION Chest Pain RISK FACTORS Height: 5'3, Weight: 155 DIMENSIONS LVDd 4.4 (3.8-5.7cm) LA (2D) 4.7 (1.9-4.0cm) Aortic Root 2.5 (2.0-3.7cm) LVDs 2.8 (2.5-4.0cm) LA (MM) (1.9-4.0cm) Aortic Cusp Exc 1.5 (1.5-2.0cm) EF (%) 65.0 (55-70%) Rt. Atrium 4.2 (1.9-4.0cm) Asc. Aorta 3.6 cm IVSd 0.9 (0.7-1.1cm) RV (D) 4.0 (1.8-2.4cm) PWd 1.0 (0.7-1.1cm) Mitral Valve Mitral Mitral Stenosis E wave 0.72m/s MV Mean GR. mmHg A wave 0.90m/s MV Peak GR. 53mmHg E/A ratio 0.8 2D MVA cm2 DECEL Time 341ms PRESS 1/2 Time ms Aortic Valve Aortic Valve Aortic Stenosis V1 1.30m/s AO Mean GR. 9mmHg V2 1.84m/s AO Peak GR. 14mmHg LVOT Diameter 1.8 (1.8-2.4cm) Doppler SHELTON 1.80cm2 Pulmonic Valve V2 0.82m/s Other Information Technically limited study due to body habitus. Conclusion 1-Normal left ventricule size and thickness. The left ventricule systolic function is normal with estimated ejection fraction 65%. Normal LV wall motion. 2-Mild right ventricle enlargement with normal systolic function 3-bitarial dilatation 4-no significant valvular pathology was seen
--- NOTE | 2025-09-26 16:59 | DVHPNRES ---
Progress Note Date Seen: Sep 26, 2025 Resident Creating Document: REYNALDO NOLAN RESIDENT Medical Necessity Reason Pt with a Central, PICC or Fol: No Subjective Review of Systems 54-year-old female with no significant past medical history and no prior surgical history presents with chest pain and headache. The patient reports that her chest pain began around 7:00 PM last night, localized to the left chest wall, described as a pressure sensation like someone sitting on her chest. She denies any prior history of myocardial infarction. She endorses shortness of breath and reports difficulty catching her breath associated with the pain. She denies caffeine intake the night prior. She also reports a cough with clear sputum, but denies fever, chills, or hemoptysis. Additionally, the patient complains of a severe headache for the past two weeks, described as a pressure- type headache. She denies dizziness, visual changes, focal weakness, numbness, or speech changes. She reports that she has felt congested since September 12, 2025, and has been taking msvv-pry-ztdfaaz medications without improvement. She denies chest trauma, palpitations, syncope, nausea, vomiting, or leg swelling. will admit to tele cards consult pending echo results Past Medical History See HPI above Past Surgical History: , tummy tuck Family History: Reviewed, non-contributory to the management of this case. Past Social History The patient lives at home, denies smoking, alcohol or illicit drugs abuse. The patient was seen and examined at bedside. She reports having orthopnea, central and left-sided chest pain. Her pain is brought on by walking, when she takes rest chest pain improves, however the chest tightness persists. She reports having a global headache. No other new complaints reported. Objective vital signs Vital Sign Date Time Temp Pulse Resp B/P (MAP) Pulse Ox O2 Delivery O2 Flow Rate FiO2 09/26/25 16:36 96.9 77 16 132/87 (102) 98 96.9 09/26/25 14:38 Room Air 0.0 09/26/25 14:38 21 Total Intake and Output 09/25/25 09/25/25 09/26/25 15:00 23:00 07:00 Intake Total 1000 ml 420 ml 400 ml Balance 1000 ml 420 ml 400 ml medications Current Medications Medications Dose Ordered Sig/Rosamaria Route Start Time Stop Time Status Last Admin Dose Admin Albuterol 2.5 mg Q4HPRN PRN NEB 09/25/25 10:45 09/26/25 14:38 2.5 MG Ipratropium [place] 0.5 mg Q4HPRN PRN NEB 09/25/25 10:45 09/26/25 14:38 0.5 MG Aspirin 81 mg DAILY PO 09/26/25 10:00 09/26/25 09:58 81 MG Morphine Sulfate 2 mg Q30MP PRN IV 09/25/25 10:45 09/25/25 16:06 2 MG Acetaminophen 325 mg Q4HP PRN PO 09/25/25 10:45 09/25/25 21:47 325 MG Zolpidem Tartrate 5 mg QHSP PRN PO 09/25/25 10:45 Docusate Sodium 100 mg DAILY PO 09/26/25 10:00 Ondansetron HCl 4 mg Q4HP PRN IV 09/25/25 10:45 Methylprednisolone Sodium Succinate 40 mg Q8HR IV 09/25/25 14:00 09/26/25 14:38 40 MG Pantoprazole Sodium 40 mg DAILY IV 09/26/25 10:00 Nitroglycerin 0.4 mg Q5MINP PRN SL 09/25/25 16:30 Guaifenesin/ Dextromethorphan 10 ml Q4HP PRN PO 09/25/25 20:00 09/25/25 20:15 10 ML Atorvastatin Calcium 20 mg HS PO 09/26/25 22:00 Hydrochlorothiazide 12.5 mg DAILY PO 09/27/25 10:00 UNV Examination Pt is lying on bed General Appearance: Alert, Oriented X3, Cooperative, Mild distress HEENT: Atraumatic, Mucous membranes moist/pink Respiratory: Clear to auscultation, Normal air movement, No added sounds Cardiovascular: Regular rate, Normal S1, Normal S2, No murmurs Abdominal/ : Active bowel sounds, Soft, no distention, no tenderness Extremities: No edema, Normal pulses, No tenderness/swelling Skin: No Significant rash, except past surgical scars Neuro: Normal speech, sensorimotor deficits none Psych/Mental Status: Mental status NL, Mood NL Nurse was there as intelligence intern during examination laboratory and microbiology Laboratory Tests 09/26/25 05:50 Test 09/26/25 05:50 Range/Units Serum Glucose 110 H 74-106 mg/dL Labs and/or images reviewed: Labs reviewed by me, Image(s) reviewed by me Problem List/Assessment/Plan Problem List/Assessment/Plan Chest pain rule out ACS Chest pain most likely costochondritis Acute hypoxic respiratory failure Troponin x3 negative EKG without acute ischemic changes Chest X-ray negative Echocardiogram completed, pending results Continue telemetry monitoring Continue aspirin, atorvastatin Cough productive of clear sputum Chest X-ray negative COVID and influenza negative no antibiotics indicated at this time Continue solumedrol Continue albuterol/atrovent prn sob Cardiology consulted Pulmonary nodule, [address] chest with and without contrast ordered Intractable headache Head CT: No acute finding GI prophylaxis: Pantoprazole DVT prophylaxis: Lovenox Diet: Cardiac Goals of care discussed with the patient for more than 27 minutes: Full code status Case discussed with , patient and RN Plan discussed with: Patient, Other (RN) My Orders My Orders Orders - REYNALDO NOLAN RESIDENT Procedure Category Date Status Time * Cardiology Consult CONS 09/26/25 Transmitted 11:[address] 09/26/25 Taken 11:[address] 09/27/25 Logged 11:04 Visit Coding STANDARD RES Billing Provider: TAYLA ALSTON MD Date of Service if different f: Sep 26, 2025 Common Visit Codes: [id number] INP/OBS CARE(HIGH) REYNALDO NOLAN Sep 26, 2025 16:59 TAYLA ALSTON MD Sep 26, 2025 23:55
--- NOTE | 2025-09-26 20:52 | DVH ---
CLINICAL HISTORY: 10 mm Rt pulmonary nodule TECHNIQUE: CT of the chest was performed without intravenous contrast. This exam was performed according to our departmental dose optimization program. Up-to-date CT equipment and radiation dose reduction techniques are utilized as appropriate. COMPARISON: None FINDINGS: Lower Neck: Unremarkable Axilla, Mediastinum and Valerie: Unremarkable. Heart and Great Vessels: Mild cardiomegaly without pericardial effusion. The thoracic aorta is normal in caliber. The central pulmonary arteries are normal caliber. Airway, Lungs and Pleura: Trachea and central airways are patent. There are trace bilateral pleural effusions. Linear bibasilar scarring or atelectasis. There is a 1.1 cm ground-glass nodule in the right upper lobe on series 3, image 22. No solid component. No consolidative pneumonia or pneumothorax. Upper Abdomen: No acute abnormality. . Chest Wall and Osseous Structures: Mild multilevel thoracic spondylosis. No destructive osseous lesion. IMPRESSION: 1. There is a 1.1 cm ground-glass right upper lobe pulmonary nodule which could be infectious or inflammatory. Lung rads Follow-up CT chest recommended in 12 months if there are risk factors for pulmonary malignancy. 2. Mild cardiomegaly and trace bilateral pleural effusions. Radiation optimization: All CT scans at this facility use at least one of these dose optimization techniques: automated exposure control mA and/or kV adjustment per patient size (includes targeted exams where dose is matched to clinical indication) or iterative reconstruction.
[2025-09-26] MEDS: ATORVASTATIN 20 MG TAB PO SCH (21:28)
[2025-09-26] MEDS: ZOLPIDEM TARTRATE 5 MG TAB PO PRN (21:34)
[2025-09-26 21:43] LABS: Urine Protein, UAD Negative (Negative)
[2025-09-26 21:50] LABS: Opiate Scree,Urine Neg (NEGATIVE)
[2025-09-26 21:51] LABS: Amphetamine Screen, Urine Neg (NEGATIVE); Barbiturate Scree,Urine Neg (NEGATIVE); Benzodiazephine Screen, Urine Neg (NEGATIVE); Cannabinoid Screen, Urine Neg (NEGATIVE); Cocaine Screen, Urine Neg (NEGATIVE); Phencyclidine Screen, Urine Neg (NEGATIVE)
[2025-09-27] VITALS (12 sets, daily range): BP systolic 136–159; BP diastolic 79–115; PULSE 56–98; RESP 16–19; TEMP 97.7–98.6; O2SAT 94–99
[2025-09-27 07:05] LABS: Hematocrit 38.5 % (36.0-46.0); Hemoglobin 13.0 g/dL (12.2-16.2); Mean Corpuscular Hemoglobin 29.4 pg (28.0-32.0); Mean Corpuscular Volume 87.3 fL (80.0-100.0); Nucleated Red Blood Cells % 0.0 %
[2025-09-27 08:46] LABS: Alanine Aminotransferase 14 U/L (7-40); Alkaline Phosphatase 59 U/L (46-116); Anion Gap 14 (5-15); BUN/Creatinine Ratio 16.7 (10.0-20.0); Blood Urea Nitrogen 12 mg/dL (9-23); Calcium 9.5 mg/dL (8.7-10.4); Carbon Dioxide 27 mmol/L (20-31); Chloride 104 mmol/L (98-107); Potassium 4.4 mmol/L (3.5-5.1); Sodium 145 mmol/L (136-145); Total Protein 7.1 g/dL (5.7-8.2)
[2025-09-27 08:47] LABS: Albumin 4.3 g/dL (3.2-4.8); Bilirubin, Total 0.4 mg/dL (0.2-1.0); Glucose 119 mg/dL (74-106)
[2025-09-27] MEDS: hydroCHLOROthiazide 25 MG TAB PO SCH (10:55)
--- NOTE | 2025-09-27 11:10 | DVHPN2 ---
Consult Progress Note Date Seen: Sep 27, 2025 Subjective Review of Systems: CVS:Normal, RESPIRATORY:Normal, NEURO:Normal Other Systems: Denies any cardiac symptoms Objective vital signs Vital Sign Date Time Temp Pulse Resp B/P (MAP) Pulse Ox O2 Delivery O2 Flow Rate FiO2 09/27/25 08:38 96 Room Air 09/27/25 08:38 0 21 09/27/25 08:31 97.8 71 17 140/88 (105) 97.8 Total Intake and Output 09/26/25 09/26/25 09/27/25 15:00 23:00 07:00 Intake Total 1200 ml 475 ml Balance 1200 ml 475 ml medications Current Medications Medications Dose Ordered Sig/Rosamaria Route Start Time Stop Time Status Last Admin Dose Admin Albuterol 2.5 mg Q4HPRN PRN NEB 09/25/25 10:45 09/26/25 21:44 2.5 MG Ipratropium [place] 0.5 mg Q4HPRN PRN NEB 09/25/25 10:45 09/26/25 21:44 0.5 MG Aspirin 81 mg DAILY PO 09/26/25 10:00 09/27/25 10:54 81 MG Morphine Sulfate 2 mg Q30MP PRN IV 09/25/25 10:45 09/25/25 16:06 2 MG Acetaminophen 325 mg Q4HP PRN PO 09/25/25 10:45 09/25/25 21:47 325 MG Zolpidem Tartrate 5 mg QHSP PRN PO 09/25/25 10:45 09/26/25 21:34 5 MG Docusate Sodium 100 mg DAILY PO 09/26/25 10:00 Ondansetron HCl 4 mg Q4HP PRN IV 09/25/25 10:45 Methylprednisolone Sodium Succinate 40 mg Q8HR IV 09/25/25 14:00 09/27/25 05:51 40 MG Pantoprazole Sodium 40 mg DAILY IV 09/26/25 10:00 Nitroglycerin 0.4 mg Q5MINP PRN SL 09/25/25 16:30 Guaifenesin/ Dextromethorphan 10 ml Q4HP PRN PO 09/25/25 20:00 09/25/25 20:15 10 ML Atorvastatin Calcium 20 mg HS PO 09/26/25 22:00 09/26/25 21:28 20 MG Hydrochlorothiazide 12.5 mg DAILY PO 09/27/25 10:00 09/27/25 10:55 12.5 MG Examination: LUNGS:Normal, CVS:Normal, NEURO:Normal laboratory and microbiology Laboratory Tests 09/27/25 05:53 Test 09/27/25 05:53 Range/Units Serum Glucose 119 H 74-106 mg/dL Problem List/Assessment/Plan Problem List/Assessment/Plan Chest pain, rule out coronary ischemia Hypertensive urgency Hyperlipidemia, newly diagnosed 1.1 cm right upper lobe pulmonary nodule Plan/Recommendation (Dr. Castro) * Transthoracic echocardiogram was an EF of 65% with normal LV wall motion * Cardiolite stress test scheduled for 09/29/2025 * Chest pain protocol * HEART score: 4 points * Single-antiplatelet therapy and lipid-lowering agent * Blood pressure control * Close telemetry monitoring Thank you for allowing us to care for this patient. Please call with any questions or concerns. This medical document was created using an electronic medical record system with voice recognition software and computerized dictation system. Although this document has been carefully reviewed, there might still be some phonetic and typographical errors. Occasional wrong-word or ``sound-alike substitutions may have occurred due to the inherent limitations of voice recognition software. These areas are purely typographical due to imperfections of the software programs and do not reflect any compromise in the patient's medical care. Please read the chart carefully and recognize, using context, where these substitutions have occurred. Plan discussed with: Patient, Other Date of Service: Sep 27, 2025 Billing Provider: AUSTIN KIRKPATRICK Cardiology Common Codes: [id number] [facility](High AUSTIN KIRKPATRICK Sep 27, 2025 11:09
--- NOTE | 2025-09-27 15:38 | DVHPNRES ---
Progress Note Date Seen: Sep 27, 2025 Resident Creating Document: GALINA ASTUDILLO RESIDENT Medical Necessity Reason Pt with a Central, PICC or Fol: No Subjective Review of Systems 54-year-old female with no significant past medical history and no prior surgical history presents with chest pain and headache. The patient reports that her chest pain began around 7:00 PM last night, localized to the left chest wall, described as a pressure sensation like someone sitting on her chest. She denies any prior history of myocardial infarction. She endorses shortness of breath and reports difficulty catching her breath associated with the pain. She denies caffeine intake the night prior. She also reports a cough with clear sputum, but denies fever, chills, or hemoptysis. Additionally, the patient complains of a severe headache for the past two weeks, described as a pressure- type headache. She denies dizziness, visual changes, focal weakness, numbness, or speech changes. She reports that she has felt congested since September 12, 2025, and has been taking [id number] medications without improvement. She denies chest trauma, palpitations, syncope, nausea, vomiting, or leg swelling. will admit to tele cards consult pending echo results Past Medical History See HPI above Past Surgical History: , tummy tuck Family History: Reviewed, non-contributory to the management of this case. Past Social History The patient lives at home, denies smoking, alcohol or illicit drugs abuse. The patient was seen and examined at bedside. She reports having orthopnea, central and left-sided chest pain. Her pain is brought on by walking, when she takes rest chest pain improves, however the chest tightness persists. She reports having a global headache. No other new complaints 09/27/2025: Patient was seen and examined by me at the bedside today. Labs and charts were reviewed. Patient reports feeling much better and denies any chest pain or cough. No new complaints today. CT chest results showed 1.1 cm ground- glass right upper lobe pulmonary nodule. Patient was made aware and counseled to follow up with primary care physician for follow up CT in 12 months' time, all questions/ Queries answered. cardiology consulted suggested a nuclear stress test on 09/29/2025. Patient made aware. Objective vital signs Vital Sign Date Time Temp Pulse Resp B/P (MAP) Pulse Ox O2 Delivery O2 Flow Rate FiO2 09/27/25 13:00 97.9 69 17 150/97 (114) 96 97.9 09/27/25 10:20 Room Air 09/27/25 10:20 0 21 Total Intake and Output 09/26/25 09/26/25 09/27/25 15:00 23:00 07:00 Intake Total 1200 ml 475 ml Balance 1200 ml 475 ml medications Current Medications Medications Dose Ordered Sig/Rosamaria Route Start Time Stop Time Status Last Admin Dose Admin Albuterol 2.5 mg Q4HPRN PRN NEB 09/25/25 10:45 09/26/25 21:44 2.5 MG Ipratropium [place] 0.5 mg Q4HPRN PRN NEB 09/25/25 10:45 09/26/25 21:44 0.5 MG Aspirin 81 mg DAILY PO 09/26/25 10:00 09/27/25 10:54 81 MG Morphine Sulfate 2 mg Q30MP PRN IV 09/25/25 10:45 09/25/25 16:06 2 MG Acetaminophen 325 mg Q4HP PRN PO 09/25/25 10:45 09/25/25 21:47 325 MG Zolpidem Tartrate 5 mg QHSP PRN PO 09/25/25 10:45 09/26/25 21:34 5 MG Docusate Sodium 100 mg DAILY PO 09/26/25 10:00 Ondansetron HCl 4 mg Q4HP PRN IV 09/25/25 10:45 Methylprednisolone Sodium Succinate 40 mg Q8HR IV 09/25/25 14:00 09/27/25 14:37 40 MG Pantoprazole Sodium 40 mg DAILY IV 09/26/25 10:00 Nitroglycerin 0.4 mg Q5MINP PRN SL 09/25/25 16:30 Guaifenesin/ Dextromethorphan 10 ml Q4HP PRN PO 09/25/25 20:00 09/25/25 20:15 10 ML Atorvastatin Calcium 20 mg HS PO 09/26/25 22:00 09/26/25 21:28 20 MG Hydrochlorothiazide 12.5 mg DAILY PO 09/27/25 10:00 09/27/25 10:55 12.5 MG Examination Pt is lying on bed General Appearance: Alert, Oriented X3, Cooperative, Mild distress HEENT: Atraumatic, Mucous membranes moist/pink Respiratory: Clear to auscultation, Normal air movement, No added sounds Cardiovascular: Regular rate, Normal S1, Normal S2, No murmurs Abdominal/ : Active bowel sounds, Soft, no distention, no tenderness Extremities: No edema, Normal pulses, No tenderness/swelling Skin: No Significant rash, except past surgical scars Neuro: Normal speech, sensorimotor deficits none Psych/Mental Status: Mental status NL, Mood NL Nurse was there as threshing operator during examination laboratory and microbiology Laboratory Tests 09/27/25 05:53 Test 09/27/25 05:53 Range/Units Serum Glucose 119 H 74-106 mg/dL Labs and/or images reviewed: Labs reviewed by me, Image(s) reviewed by me Problem List/Assessment/Plan Problem List/Assessment/Plan Chest pain rule out ACS Chest pain most likely costochondritis Acute hypoxic respiratory failure Troponin x3 negative EKG without acute ischemic changes Chest X-ray negative Echocardiogram completed, pending results Continue telemetry monitoring Continue aspirin, atorvastatin Cough productive of clear sputum Chest X-ray negative COVID and influenza negative no antibiotics indicated at this time Continue solumedrol Continue albuterol/atrovent prn sob Cardiology consulted suggested a nuclear stress test on 09/29/2025. Pulmonary nodule, 10 mm Trace bilateral pleural effusions CT chest without contrast shows: There is a 1.1 cm ground-glass right upper lobe pulmonary nodule which could be infectious or inflammatory. Lung rads Follow-up CT chest recommended in 12 months if there are risk factors for pulmonary malignancy; Mild cardiomegaly and trace bilateral pleural effusions. Intractable headache Head CT: No acute finding toradol 30mg q8 rprn GI prophylaxis: Pantoprazole DVT prophylaxis: Lovenox Diet: Cardiac Goals of care discussed with the patient for more than 27 minutes: Full code status Case discussed with Dr. Cardenas, patient and RN Plan discussed with: Patient, Other (rn) My Orders My Orders Orders - GALINA ASTUDILLO RESIDENT Procedure Category Date Status Time Complete Blood Count LAB 09/28/25 Verified 04:00 Basic Metabolic Panel LAB 09/28/25 Verified 04:00 Visit Coding STANDARD RES Billing Provider: TAYLA CARDENAS MD Date of Service if different f: Sep 27, 2025 Common Visit Codes: 83584-[id number] INP/OBS CARE(HIGH) GALINA ASTUDILLO RESIDENT Sep 27, 2025 15:38 TAYLA CARDENAS MD Sep 27, 2025 23:26
[2025-09-27] MEDS: hydrALAZINE HCL 20 MG/ML VL IV PRN (18:07)
[2025-09-28] VITALS (8 sets, daily range): BP systolic 143–158; BP diastolic 91–107; PULSE 58–74; RESP 16–19; TEMP 36.4; O2SAT 94–96
[2025-09-28 07:08] LABS: Hematocrit 40.5 % (36.0-46.0); Hemoglobin 13.5 g/dL (12.2-16.2); Mean Corpuscular Hemoglobin 28.9 pg (28.0-32.0); Mean Corpuscular Volume 86.4 fL (80.0-100.0); Nucleated Red Blood Cells % 0.0 %
[2025-09-28 07:22] LABS: Anion Gap 11 (5-15); Carbon Dioxide 25 mmol/L (20-31); Chloride 105 mmol/L (98-107); Potassium 3.6 mmol/L (3.5-5.1); Sodium 141 mmol/L (136-145)
[2025-09-28 07:23] LABS: Calcium 9.3 mg/dL (8.7-10.4)
[2025-09-28 07:28] LABS: BUN/Creatinine Ratio 18.3 (10.0-20.0); Blood Urea Nitrogen 13 mg/dL (9-23)
[2025-09-28 07:30] LABS: Glucose 143 mg/dL (74-106)
--- NOTE | 2025-09-28 13:20 | DVHPN2 ---
[facility] 09/28/25 1320: Consult Progress Note Date Seen: Sep 28, 2025 Subjective Review of Systems: CVS:Normal, RESPIRATORY:Normal, NEURO:Normal Other Systems: Denies any cardiac symptoms Objective vital signs Vital Sign Date Time Temp Pulse Resp B/P (MAP) Pulse Ox O2 Delivery O2 Flow Rate FiO2 09/28/25 12:37 97.8 58 16 158/98 (118) 96 97.8 09/28/25 08:00 Room Air* 0 21 Total Intake and Output 09/27/25 09/27/25 09/28/25 15:00 23:00 07:00 Intake Total 2000 ml 450 ml Balance 2000 ml 450 ml medications Current Medications Medications Dose Ordered Sig/Rosamaria Route Start Time Stop Time Status Last Admin Dose Admin Albuterol 2.5 mg Q4HPRN PRN NEB 09/25/25 10:45 09/27/25 20:13 2.5 MG Ipratropium [place] 0.5 mg Q4HPRN PRN NEB 09/25/25 10:45 09/27/25 20:13 0.5 MG Aspirin 81 mg DAILY PO 09/26/25 10:00 09/28/25 10:29 81 MG Morphine Sulfate 2 mg Q30MP PRN IV 09/25/25 10:45 09/25/25 16:06 2 MG Acetaminophen 325 mg Q4HP PRN PO 09/25/25 10:45 09/28/25 06:00 325 MG Zolpidem Tartrate 5 mg QHSP PRN PO 09/25/25 10:45 09/26/25 21:34 5 MG Docusate Sodium 100 mg DAILY PO 09/26/25 10:00 Ondansetron HCl 4 mg Q4HP PRN IV 09/25/25 10:45 Methylprednisolone Sodium Succinate 40 mg Q8HR IV 09/25/25 14:00 09/28/25 05:58 40 MG Pantoprazole Sodium 40 mg DAILY IV 09/26/25 10:00 Nitroglycerin 0.4 mg Q5MINP PRN SL 09/25/25 16:30 Guaifenesin/ Dextromethorphan 10 ml Q4HP PRN PO 09/25/25 20:00 09/25/25 20:15 10 ML Atorvastatin Calcium 20 mg HS PO 09/26/25 22:00 09/27/25 22:08 20 MG Hydrochlorothiazide 12.5 mg DAILY PO 09/27/25 10:00 09/28/25 10:31 12.5 MG Hydralazine HCl 10 mg Q6HP PRN IV 09/27/25 17:15 09/27/25 18:07 10 MG Examination: GENERAL:Normal, LUNGS:Normal, CVS:Normal, NEURO:Normal laboratory and microbiology Laboratory Tests 09/28/25 06:15 Test 09/28/25 06:15 Range/Units Serum Glucose 143 H 74-106 mg/dL Problem List/Assessment/Plan Problem List/Assessment/Plan Chest pain in the setting of hypertensive urgency Hyperlipidemia, newly diagnosed 1.1 cm right upper lobe pulmonary nodule Plan/Recommendation (Dr. nAgelo) * Transthoracic echocardiogram was an EF of 65% with normal LV wall motion * Single-antiplatelet therapy and lipid-lowering agent * Aggressive blood pressure control Patient denies any further cardiac symptoms and is requesting to follow-up with ischemic work-up as outpatient with the at bedside agreeing to her wishes. She was advised to continue an in-patient stress test given dynamic ECG changes. The patient prefers to continue work-up as outpatient stating she will follow-up as soon as possible in the outpatient setting. Primary care team has been notified. We will sign off at this time. Kindly call with any questions or concerns. Thank you for allowing us to care for this patient. This medical document was created using an electronic medical record system with voice recognition software and computerized dictation system. Although this document has been carefully reviewed, there might still be some phonetic and typographical errors. Occasional wrong-word or ``sound-alike substitutions may have occurred due to the inherent limitations of voice recognition software. These areas are purely typographical due to imperfections of the software programs and do not reflect any compromise in the patient's medical care. Please read the chart carefully and recognize, using context, where these substitutions have occurred. Plan discussed with: Patient, Spouse, Other Date of Service: Sep 28, 2025 Billing Provider: [facility] Common Codes: [id number] HOSP CARE(High YOON ANGELO MD 09/28/25 1807: ADDENDUM ADDENDUM ADDENDUM Patient was seen and examined at bedside. Plan was formulated with Stephanie Kirkpatrick cardiology FUNDRAISING DIRECTOR as above. Briefly 54-year-old woman with no known medical problems although patient does not have a PCP who presented after having acute onset chest pressure that is persistent throughout the night prior to her ED presentation. Reports she is physically active on a daily basis caring for her grandchildren and running around. Reports being able to perform physical activity without any cardiac complaint. The episode happened at rest. Was not associated with nausea or vomiting or diaphoresis. At the time of my exam patient denies having any type of symptoms. Troponin levels were negative x3. EKG does not suggest dynamic ischemic changes. Patient was initially planned for cardiac stress test. I discussed the indications for such. However patient is refusing to stay in the hospital for stress test and would like to be discharged in to follow-up with cardiology as outpatient. Cardiology team had a prolonged discussion with the patient and her who is also present at bedside. I made it clear to the patient that is my recommendation is to stay for cardiac stress test however patient at this time he is adamant and refusing to stay and would like to be discharged. Yoon Angelo MD Interventional cardiology [facility] Sep 28, 2025 13:20 YOON ANGELO MD Sep 28, 2025 18:07
[2025-09-28] MEDS ORDERED: HYDR25TA5 PO ×2 (16:13→17:20)
[2025-09-28] MEDS ORDERED: LISI20TA56 PO ×2 (16:13→17:20)
[2025-09-28] MEDS ORDERED: ATOR20TA50 PO (16:13)
[2025-09-28] MEDS ORDERED: AML5T PO ×2 (16:13→17:20)
[2025-09-28] MEDS ORDERED: ASPI-325 PO ×2 (16:13→17:20)
[2025-09-28] MEDS ORDERED: ATOR-507 PO (17:20)
--- NOTE | 2025-09-28 18:22 | DVHDSRES ---
Discharge Summary Date of Admission Resident Creating Document: REYNALDO NOLAN Sep 25, 2025 at 10:44 Date of Discharge: Sep 28, 2025 Admitting Diagnosis Chest pain rule out ACS Labs/Diagnostic Data: Laboratory Results Test 09/28/25 06:15 09/27/25 05:53 09/26/25 21:00 09/26/25 05:50 White Blood Count 14.8 10^3/uL (4.4-10.8) Red Blood Count 4.69 10^6/uL (4.0-5.20) Hemoglobin 13.5 g/dL (12.2-16.2) Hematocrit 40.5 % (36.0-46.0) Mean Corpuscular Volume 86.4 fL (80.0-100.0) Mean Corpuscular Hemoglobin 28.9 pg (28.0-32.0) Mean Corpuscular Hemoglobin Concent 33.4 g/dL (32.0-36.0) Red Cell Distribution Width 13.2 % (11.8-14.3) Platelet Count 298 10^3/uL (140-450) Mean Platelet Volume 8.3 fL (6.9-10.8) Neutrophils (%) (Auto) 88.8 % (37.0-80.0) Lymphocytes (%) (Auto) 8.8 % (10.0-50.0) Monocytes (%) (Auto) 2.3 % (0.0-12.0) Eosinophils (%) (Auto) 0.0 % (0.0-7.0) Basophils (%) (Auto) 0.1 % (0.0-2.0) Neutrophils # (Auto) 13.1 10 ^3/uL (1.6-8.6) Lymphocytes # (Auto) 1.3 10 ^3/uL (0.4-5.4) Monocytes # (Auto) 0.3 10 ^3/uL (0-1.3) Eosinophils # (Auto) 0 10 ^3/uL (0-0.8) Basophils # (Auto) 0 10 ^3/uL (0-0.2) Nucleated Red Blood Cells 0.0 % Sodium Level 141 mmol/L (136-145) Potassium Level 3.6 mmol/L (3.5-5.1) Chloride Level 105 mmol/L (98-107) Carbon Dioxide Level 25 mmol/L (20-31) Anion Gap 11 (5-15) Blood Urea Nitrogen 13 mg/dL (9-23) Creatinine 0.71 mg/dL (0.550-1.02) Glomerular Filtration Rate Calc 102 mL/min (>90) BUN/Creatinine Ratio 18.3 (10.0-20.0) Serum Glucose 143 mg/dL (74-106) Calcium Level 9.3 mg/dL (8.7-10.4) Total Bilirubin 0.4 mg/dL (0.2-1.0) Aspartate Amino Transferase (AST) 13 U/L (13-40) Alanine Aminotransferase (ALT) 14 U/L (7-40) Alkaline Phosphatase 59 U/L (46-116) Total Protein 7.1 g/dL (5.7-8.2) Albumin 4.3 g/dL (3.2-4.8) Urine Color Light-yellow (Yellow) Urine Clarity Clear (Clear) Urine pH 6.0 (5.0-9.0) Urine Specific Superior 1.014 (1.001-1.035) Urine Protein Negative (Negative) Urine Ketones Negative (Negative) Urine Blood Negative /uL (Negative) Urine Nitrite Negative (Negative) Urine Bilirubin Negative (Negative) Urine Urobilinogen Normal mg/dL (Negative) Urine Leukocyte Esterase Negative /uL (Negative) Urine RBC <1 /hpf (0 - 4) Urine Microscopic WBC 2 /HPF (0-5) Urine Squamous Epithelial Cells Few /hpf (<5) Urine Bacteria Few /hpf (None Seen) Urine Glucose Normal mg/dL (Normal) Urine Test Negative (Negative) Urine Opiates Screen Neg (NEGATIVE) Urine Fentanyl Screen Neg (NEGATIVE) Urine Barbiturates Screen Neg (NEGATIVE) Urine Phencyclidine Screen Neg (NEGATIVE) Urine Amphetamines Screen Neg (NEGATIVE) Urine Benzodiazepines Screen Neg (NEGATIVE) Urine Cocaine Screen Neg (NEGATIVE) Urine Cannabinoids Screen Neg (NEGATIVE) Hemoglobin A1c 5.3 % A1C (<5.7) Triglycerides Level 99 mg/dL (< 150) Cholesterol Level 172 mg/dL (< 200) LDL Cholesterol 121 mg/dL (< 100) HDL Cholesterol 49 mg/dL (40-59) Thyroid Stimulating Hormone (TSH) 0.36 uIU/mL (0.55-4.78) Free Thyroxine (T4) Calculated 1.12 ng/dL (0.89-1.76) Free Triiodothyronine (T3) pg/mL 2.44 pg/mL (2.3-4.2) Beta HCG, Quantitative 2.7 mIU/mL (1.5-4.2) Test 09/25/25 23:18 09/25/25 11:38 09/25/25 11:08 09/25/25 10:30 Troponin I High Sensitivity 7 ng/L (</=34) Influenza Type A Antigen Negative (Negative) Influenza Type B Antigen Negative (Negative) SARS-CoV-2 Antigen (Rapid) Negative (NEGATIVE) Prothrombin Time 10.6 sec (9.3-11.8) Prothrombin Time INR 1.00 (0.9-1.15) Magnesium Level 2.3 mg/dL (1.6-2.6) Lipase 51 U/L (12-53) Test 09/25/25 09:46 09/25/25 07:48 POC Glucose 93 mg/dl (70-106) D-Dimer, Quantitative 0.32 mg/L FEU (0.0-0.49) Other Laboratory Tests 09/28/25 06:15 Brief Hx & Hospital Course: Soniya Martin 54-year-old female with no significant past medical history and no prior surgical history presents with chest pain and headache. The patient reports that her chest pain began around 7:00 PM last night, localized to the left chest wall, described as a pressure sensation like someone sitting on her chest. She denies any prior history of myocardial infarction. She endorses shortness of breath and reports difficulty catching her breath associated with the pain. She denies caffeine intake the night prior. She also reports a cough with clear sputum, but denies fever, chills, or hemoptysis. Additionally, the patient complains of a severe headache for the past two weeks, described as a pressure-type headache. She denies dizziness, visual changes, focal weakness, numbness, or speech changes. She reports that she has felt congested since September 12, 2025, and has been taking ciuw-dnz-pjsrqpz medications without improvement. She denies chest trauma, palpitations, syncope, nausea, vomiting, or leg swelling. will admit to tele cards consult pending echo results Past Medical History See HPI above Past Surgical History: , tummy tuck Family History: Reviewed, non-contributory to the management of this case. Past Social History The patient lives at home, denies smoking, alcohol or illicit drugs abuse. Brief hospital course: On further evaluation patient's EKG revealed no ischemic changes, chest x-ray and troponin 3 times negative. Transthoracic echo showed EF 65% with normal LV wall motion. Cardiology recommended single antiplatelet therapy and lipid-lowering agent with aggressive blood pressure control. His CT revealed a 1.1 cm right upper lobe pulmonary nodule. Patient was counseled to follow up outpatient for the pulmonary nodule. Also mild cardiomegaly with trace bilateral pleural effusions noted. Evidence flu was negative. He was treated with Solu-Medrol, albuterol. No antibiotics indicated at this time. Cardiology suggested outpatient nuclear stress test. A heart CT scan was done due to her intractable headache, which revealed no acute abnormality. Pain was managed with Toradol. On the day of discharge, patient was hemodynamically stable, patient or and daughter verbalized understanding of the treatment and discharge plan. Was advised to follow up outpatient with PCP, DC clinic and territory account executive. Pt is lying on bed General Appearance: Alert, Oriented X3, Cooperative, Mild distress HEENT: Atraumatic, Mucous membranes moist/pink Respiratory: Clear to auscultation, Normal air movement, No added sounds Cardiovascular: Regular rate, Normal S1, Normal S2, No murmurs Abdominal/ : Active bowel sounds, Soft, no distention, no tenderness Extremities: No edema, Normal pulses, No tenderness/swelling Skin: No Significant rash, except past surgical scars Neuro: Normal speech, sensorimotor deficits none Psych/Mental Status: Mental status NL, Mood NL Nurse was there as nutrition tech during examination Operations or Procedures PATIENT: SONIYA MARTIN ACCT: [id number] UNIT: [id number] : 1970 LOC: [facility] ROOM / BED: [facility]T / B AGE / SEX: 54 / F ADM STATUS: ADM IN SERVICE 1104 ORDERING PHYSICIAN: REYNALDO NOLAN RESIDENT PROCEDURE(s): CX2CT - CHEST WITHOUT CONTRAST REASON: 10 mm Rt pulmonary nodule ORDER NUMBER(s): [id number], ACCESSION NUMBER(s): [id number] CLINICAL HISTORY: 10 mm Rt pulmonary nodule TECHNIQUE: CT of the chest was performed without intravenous contrast. This exam was performed according to our departmental dose optimization program. Up-to-date CT equipment and radiation dose reduction techniques are utilized as appropriate. COMPARISON: None FINDINGS: Lower Neck: Unremarkable Axilla, Mediastinum and Valerie: Unremarkable. Heart and Great Vessels: Mild cardiomegaly without pericardial effusion. The thoracic aorta is normal in caliber. The central pulmonary arteries are normal caliber. Airway, Lungs and Pleura: Trachea and central airways are patent. There are trace bilateral pleural effusions. Linear bibasilar scarring or atelectasis. There is a 1.1 cm ground-glass nodule in the right upper lobe on series 3, image 22. No solid component. No consolidative pneumonia or pneumothorax. Upper Abdomen: No acute abnormality. . Chest Wall and Osseous Structures: Mild multilevel thoracic spondylosis. No destructive osseous lesion. IMPRESSION: 1. There is a 1.1 cm ground-glass right upper lobe pulmonary nodule which could be infectious or inflammatory. Lung rads Follow-up CT chest recommended in 12 months if there are risk factors for pulmonary malignancy. 2. Mild cardiomegaly and trace bilateral pleural effusions. PATIENT: SONIYA MARTIN ACCT: [id number] UNIT: [id number] : 1970 [facility] AGE / SEX: 54 / F ADM STATUS: ADM IN SERVICE 163 ORDERING PHYSICIAN: ANNE LINTON DNP PROCEDURE(s): CAPIV - CT CHEST/AB/PL W CON- IV ONLY REASON: AAA; ACUTE ABD AND CHEST PAIN ORDER NUMBER(s): [id number], ACCESSION NUMBER(s): [id number] INDICATION: AAA; ACUTE ABD AND CHEST PAIN TECHNIQUE: CT axial images of the chest, abdomen and pelvis are obtained with contrast. Coronal and sagittal reformats were obtained. Radiation Dose Information: CTDI volume is 6.69 mGy. Dose-length product is 487.76 mGy*cm COMPARISON: CT CHEST/AB/PL W CON- IV ONLY on DOS: 09/12/22 FINDINGS: The trachea is patent. No pneumothorax. Bilateral atelectasis. 10 mm right upper lobe ground-glass nodule/ opacity. Heart normal in size. No mediastinal/hilar lymphadenopathy. No supraclavicular, axillary lymphadenopathy. Ascending aorta measures 3.2 cm in diameter. Descending thoracic aorta measures 2.2 cm in diameter. Adrenal glands, spleen, pancreas unremarkable. Hepatic steatosis. No CT evidence for cholelithiasis. 6 mm left hepatic lobe hypodensity, too small to characterize, statistically likely a cyst. 11 mm posterior right hepatic lobe hypervascular lesion. No hydronephrosis. Small hiatal hernia. Stomach is partially distended. Small bowel loops are normal in caliber. Colonic diverticular disease. Moderate volume stool in the colon. No secondary signs for appendicitis. The abdominal aorta is normal in caliber with scattered atherosclerotic calcifications. No evidence for abdominal aortic aneurysmal Dilatation. The infrarenal abdominal aorta measures 1.5 cm in diameter. Bladder partially distended. Numerous periuterine varices. Enlargement of the left gonadal vein. No free pelvic fluid. No inguinal lymphadenopathy. There is mlbf-mq-chsmfnbt bilateral sacroiliac degenerative joint disease. No aggressive osseous process. Ankh-xq-wbsvomfl thoracolumbar degenerative disc disease. IMPRESSION: No evidence for abdominal aortic aneurysm. 10 mm right upper lobe ground-glass pulmonary nodule. Recommend follow-up per Fleischner society criteria. Colonic diverticular disease. 11 mm posterior right hepatic lobe hypervascular lesion, possibly hemangioma. Recommend multiphasic MRI abdomen with and without contrast which can be done in the nonemergent setting. Periuterine varices with enlargement of the left gonadal vein which can be seen with pelvic congestion syndrome. Correlate with clinical symptoms. Other findings as described. PATIENT: SONIYA MARTIN ACCT: [id number] UNIT: [id number] : 1970 LOC: [facility] ROOM / BED: [address] [place] [address] AGE / SEX: 54 / F ADM STATUS: ADM IN SERVICE 1044 ORDERING PHYSICIAN: ANNE LINTON DNP PROCEDURE(s): HWOCT - HEAD WITHOUT CONTRAST REASON: eval for acute headache ORDER NUMBER(s): [id number], ACCESSION NUMBER(s): [id number] CT HEAD WITHOUT CONTRAST HISTORY: Headache. Evaluate for acute intracranial hemorrhage. COMPARISON: HEAD WITHOUT CONTRAST on DOS: 09/13/22. CONTRAST: Study was performed without contrast. TECHNIQUE: Axial images from the skull base to the vertex with coronal and sagittal reformatted images. This exam was performed according to our departmental dose optimization program. Up-to-date CT equipment and radiation dose reduction techniques are utilized as appropriate. DOSE: CTDIvol: 57 mGy; DLP: 1008.5 mGy-cm. FINDINGS: BRAIN PARENCHYMA: No acute hemorrhage, large vascular territory infarct, or mass effect. White matter is within normal limits for age. VENTRICLES/EXTRA-AXIAL SPACES: No evidence of hydocephalus. No extra-axial collection. Basal cisterns are patent. EXTRACRANIAL STRUCTURES: No acute or suspicious ossues abnormality. Normal soft tissues. Partially images portions of the paranasal sinuses and mastoids demonstrate no significant abnormality. Orbits are unremarkable. IMPRESSION: No acute intracranial abnormality. PATIENT: SONIYA MARTIN ACCT: [id number] UNIT: [id number] : 1970 LOC: ER ROOM / BED: / AGE / SEX: 54 / F ADM STATUS: REG ER SERVICE 0736 ORDERING PHYSICIAN: KAMERON WALSH MD PROCEDURE(s): CXRP - CHEST PORTABLE REASON: cp ORDER NUMBER(s): [id number], ACCESSION NUMBER(s): [id number] CHEST RADIOGRAPH INDICATION: cp TECHNIQUE: Single frontal view of the chest was obtained COMPARISON: None FINDINGS: Lines and Tubes: None Lungs: Clear Pleura: No effusion. No pneumothorax. Cardiomediastinal contours: Unremarkable Bones: Unremarkable IMPRESSION: No acute disease. Condition at Discharge: Stable Final Diagnosis/Problems List Chest pain ruled out ACS Chest pain was likely due to costochondritis Acute hypoxic respiratory failure 1.1 cm pulmonary nodule Trace bilateral pleural effusion Intractable headache ruled out stroke Discharge Disposition: Home Discharge Instruct/Medications Diet: Consistent carbohydrate, Cardiac 2g Na,low cholest Activity: No Restrictions, As Tolerated Follow Up/Referral: Follow up outpatient with PCP, Dc clinic and Cardiology Please schedule DC clinic appointment with Dr. Nolan ( Monday PM clinic) Medications: as per EMR Scheduled Amlodipine Besylate (Norvasc Tablet), 1 TAB PO DAILY Aspirin (Aspirin Low Dose), 81 MG PO DAILY Atorvastatin Calcium (Lipitor), 20 MG PO DAILY Hctz (Hydrochlorothiazide), 25 MG PO DAILY Lisinopril (Lisinopril), 20 MG PO DAILY Discharge Statement: "Patient was advised to return to the ER or call 911 if any headaches, dizziness, shortness of breath, chest pain, abdominal pain, bleeding, fevers, or worsening of medical condition. Patient was counseled about treatment plan, medications, possible side effects, patientverbalized understanding. All questions were answered to the best of my ability. This discharge took greater then 30 minutes in planning, reviewing documentation, counseling the patient, and discussing with other team members." ASSESSMENT ASSESSMENT Assessment Chest pain ruled out ACS Visit Coding STANDARD RES Billing Provider: TAYLA ALSTON MD Date of Service if different f: Sep 28, 2025 Common Visit Codes: 77261-GYU/OBS DISCH DAY >30min REYNALDO NOLAN RESIDENT Sep 28, 2025 18:22
[2025-09-29] MEDS ORDERED: hydroCHLOROthiazide 25 MG TAB PO SCH (10:00)
[2025-09-29] MEDS ORDERED: LISINOPRIL 20 MG TAB PO SCH (10:00)
--- NOTE | 2025-09-30 07:33 | ECG ---
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
== END 2025-09-28 17:30 | disposition home or self-care (01) | DRG 205 ==
LOC: ER 07:01 → OVERFLOW 10:44 → TELE-WESTW 15:36
PROVIDERS: ADMIT Internal Medicine; ATTEND Internal Medicine
DX: M94.0 Chondrocostal junction syndrome [Tietze] (principal); J96.01 Acute respiratory failure with hypoxia; J90 Pleural effusion, not elsewhere classified; I16.0 Hypertensive urgency; E78.5 Hyperlipidemia, unspecified; I10 Essential (primary) hypertension; Z20.822 Contact with and (suspected) exposure to COVID-19; R91.1 Solitary pulmonary nodule
CPT/HCPCS: 36415; 70450; 71045; 71250; 71260; 74177; 80048; 80053; 80061; 80307; 81001; 81025; 82962; 83036; 83690; 83735; 84439; 84443; 84481; 84484; 84702; 85025; 85379; 85610; 87426; 87804; 93005; 93306; 94640; 96374; 96375; G0378; J2405; J2470; J3490